=== PATIENT | female | born 1970 | race Caucasian/White ===

== ENCOUNTER 2018-04-04 21:28 | Emergency (ER) | payer BC ==
[~2018-04-04] VITALS: Ht 172.7 cm; Wt 59.0 kg
== END 2018-04-04 23:38 | disposition home or self-care (01) ==
LOC: ED 21:28
DX: S20.211A Contusion of right front wall of thorax, initial encounter (principal); Z88.0 Allergy status to penicillin; W54.1XXA Struck by dog, initial encounter; Y93.89 Activity, other specified; Y92.89 Other specified places as the place of occurrence of the external cause; Y99.8 Other external cause status